=== PATIENT | male | born 1975 | race Hispanic/Latino ===

== ENCOUNTER 2016-12-03 02:54 | Emergency (ER) | payer SELFPAY ==
[2016-12-03] MEDS ORDERED: Ketorolac Tromethamine 30 MG/ML VIAL ONE (03:17)
[2016-12-03] MEDS ORDERED: Fluorescein Opthalmic Strip ONE (04:09)
== END 2016-12-03 04:20 | disposition home or self-care (01) ==
LOC: ERS 02:54
DX: H57.12 Ocular pain, left eye (principal); R51 Headache; F17.210 Nicotine dependence, cigarettes, uncomplicated
CPT/HCPCS: 96372; J1885

== ENCOUNTER 2017-02-16 16:08 | Emergency (ER) | payer SELFPAY ==
[2017-02-16] MEDS ORDERED: Ketorolac Tromethamine 30 MG/ML VIAL ONE (16:50)
[2017-02-16] MEDS ORDERED: Acetaminophen 500 MG TAB ONE (17:25)
[2017-02-16 17:31] LABS: #Basophils 0.1 thou/uL (0.0-0.2); #Eosinphils 0.1 thou/uL (0.0-0.7); #Lymphocytes 2.2 thou/uL (1.20-3.40); #Neutrophils 11.3 thou/uL (1.40-6.50); %Basophils 0.4 % (0.0-1.0); %Eosinophils 0.5 % (0.0-10.0); %Lymphocytes 14.9 % (21.0-51.0); %Monocytes 6.7 % (0.0-10.0); Hematocrit 46.3 % (42.0-52.0); Mean Platelet Volume 6.5 fL (7.4-10.4); Red Blood Cell (RBC) Count 4.94 mill/uL (4.70-6.10); White Blood Cell (WBC) Count 14.5 thou/uL (4.8-10.8)
[2017-02-16 17:53] LABS: ALT (SGPT) 20 U/L (8-55); AST (SGOT) 27 U/L (5-34); Alkaline Phosphatase 64 U/L (40-150); Anion Gap 10 mmol/L (10-20); BUN (Urea Nitrogen) 18 mg/dL (8.9-20.6); Bilirubin, Total 0.3 mg/dL (0.2-1.2); Calc. Creatinine Clearance 0 mL/min (70-130); Carbon Dioxide 24 mmol/L (22-29); Chloride 104 mmol/L (98-107); Estimated GFR-MDRD 61; Globulin 2.3 g/dL (2.4-3.5); Protein, Total 5.4 g/dL (6.0-8.3)
[2017-02-16] MEDS ORDERED: Ondansetron ODT 4 MG TAB ONE (17:53)
--- NOTE | 2017-02-16 19:25 | RAD ---
FRONTAL RADIOGRAPH CHEST 02/16/17 Supine and upright frontal imaging abdomen and pelvis. COMPARISON: None. HISTORY: Fever. FINDINGS: Frontal radiograph chest demonstrates no pneumothorax, pleural fluid, focal consolidation or alveolar edema. Herat and mediastinal contours are unremarkable. No evidence for free intraperitoneal air or small bowel obstruction. IMPRESSION: No acute findings. POS: [facility]
== END 2017-02-16 20:17 | disposition home or self-care (01) ==
LOC: ERS 16:08
DX: R50.9 Fever, unspecified (principal); F17.290 Nicotine dependence, other tobacco product, uncomplicated
CPT/HCPCS: 36415; 74022; 80053; 85025; 86308; 96360; 96372; J1885; Q0162

== ENCOUNTER 2017-02-18 16:05 | Emergency (ER) | payer SELFPAY | END 2017-02-18 16:34 | disposition home or self-care (01) | LOC: ERS 16:05 | DX: J06.9 Acute upper respiratory infection, unspecified (principal); F31.9 Bipolar disorder, unspecified; F20.9 Schizophrenia, unspecified; F17.210 Nicotine dependence, cigarettes, uncomplicated; F17.290 Nicotine dependence, other tobacco product, uncomplicated | CPT/HCPCS: 99406 ==

== ENCOUNTER 2017-02-18 21:03 | Emergency (ER) | payer SELFPAY ==
[2017-02-18 22:43] LABS: #Basophils 0.1 thou/uL (0.0-0.2); #Eosinphils 0.2 thou/uL (0.0-0.7); #Lymphocytes 1.8 thou/uL (1.20-3.40); #Monocytes 0.9 thou/uL (0.11-0.59); #Neutrophils 8.5 thou/uL (1.40-6.50); %Basophils 0.6 % (0.0-1.0); %Eosinophils 2.1 % (0.0-10.0); %Lymphocytes 15.3 % (21.0-51.0); %Monocytes 7.9 % (0.0-10.0); Hematocrit 44.6 % (42.0-52.0); Mean Platelet Volume 6.1 fL (7.4-10.4); Red Blood Cell (RBC) Count 4.71 mill/uL (4.70-6.10); White Blood Cell (WBC) Count 11.5 thou/uL (4.8-10.8)
[2017-02-18 23:10] LABS: ALT (SGPT) 64 U/L (8-55); AST (SGOT) 63 U/L (5-34); Alkaline Phosphatase 79 U/L (40-150); Anion Gap 13 mmol/L (10-20); BUN (Urea Nitrogen) 16 mg/dL (8.9-20.6); Bilirubin, Total 0.4 mg/dL (0.2-1.2); Calc. Creatinine Clearance 0 mL/min (70-130); Calcium 8.8 mg/dL (7.8-10.44); Carbon Dioxide 28 mmol/L (22-29); Chloride 103 mmol/L (98-107); Estimated GFR-MDRD 70; Globulin 2.7 g/dL (2.4-3.5); Protein, Total 6.1 g/dL (6.0-8.3)
[2017-02-18 23:11] LABS: Acetaminophen Less than 6.0 mcg/mL (10.0-30.0); Salicylate Less than 8.0 mg/dL (15.0-30.0)
[2017-02-19] MEDS ORDERED: Acetaminophen 325 MG TAB ONE ×3 (01:07→23:16)
[2017-02-19 03:18] LABS: Bilirubin Small (Negative); Blood, Urine Negative (Negative); Glucose, Urine (Dipstick) Negative (Negative); Ketone, Urine 15 mg/dL (Negative); Nitrite Negative (Negative); Protein, Urine (Dipstick) Negative (Neg-Trace)
[2017-02-19 03:32] LABS: Amphetamine Not Detected (NotDetected); Methadone Not Detected (NotDetected); Methamphetamine Not Detected (NotDetected)
[2017-02-19] MEDS ORDERED: traZODone HCl 50 MG TAB ONE (23:16)
[2017-02-20] MEDS ORDERED: Ibuprofen 200 MG TAB ONE (10:04)
[2017-02-20] MEDS ORDERED: AMOXicillin 250 MG CAP ONE (19:03)
[2017-02-20] MEDS ORDERED: hydrOXYzine Pamoate 25 mg Capsule ONE (19:03)
[2017-02-20] MEDS ORDERED: Acetaminophen 325 MG TAB ONE (19:03)
[2017-02-20] MEDS ORDERED: traZODone HCl 50 MG TAB ONE (19:38)
[2017-02-21] MEDS ORDERED: AMOXicillin 250 MG CAP ONE (09:20)
[2017-02-21] MEDS ORDERED: hydrOXYzine Pamoate 25 mg Capsule ONE (11:53)
[2017-02-21] MEDS ORDERED: Acetaminophen 325 MG TAB ONE (11:53)
== END 2017-02-21 14:35 ==
LOC: ERS 21:03
DX: R45.851 Suicidal ideations (principal); R45.850 Homicidal ideations; F31.9 Bipolar disorder, unspecified; F20.9 Schizophrenia, unspecified; F17.210 Nicotine dependence, cigarettes, uncomplicated; Z71.6 Tobacco abuse counseling
CPT/HCPCS: 36415; 36416; 80053; 80306; 80307; 81003; 84443; 85025; 99406; Q0177

== ENCOUNTER 2017-03-14 19:31 | Emergency (ER) | payer SELFPAY | END 2017-03-14 21:45 | disposition home or self-care (01) | LOC: ERS 19:31 | DX: M25.562 Pain in left knee (principal); F31.9 Bipolar disorder, unspecified; F20.9 Schizophrenia, unspecified; F17.210 Nicotine dependence, cigarettes, uncomplicated | CPT/HCPCS: 99282 ==

== ENCOUNTER 2017-03-20 12:46 | Emergency (ER) | payer SELFPAY ==
[2017-03-20] MEDS ORDERED: Ketorolac Tromethamine 30 MG/ML VIAL ONE (16:29)
--- NOTE | 2017-03-20 16:33 | ULT ---
LEFT LOWER EXTREMITY VENOUS DOPPLER WITH SPECTRAL ANALYSIS AND COLOR FLOW EVALUATION 03/20/17 HISTORY: Left posterior calf pain since 03/13/17. The pain is sharp with angulation. FINDINGS: Mak scale, color flow, doppler evaluation with spectral analysis of the left lower extremity venous structures is performed with 2D imaging. The left lower extremity common femoral, superficial femoral , popliteal, posterior tibial, most proximal greater saphenous and profunda femoral veins are imaged. There is normal lumen compressibility, flow and augmentation in the visualized deep venous structures of the left lower extremity. IMPRESSION: No evidence of a DVT involving the visualized deep venous structures left lower extremity. POS: [facility]
== END 2017-03-20 16:41 | disposition home or self-care (01) ==
LOC: ERS 12:46
DX: M25.562 Pain in left knee (principal); F31.9 Bipolar disorder, unspecified; F20.9 Schizophrenia, unspecified; F17.210 Nicotine dependence, cigarettes, uncomplicated; Z79.899 Other long term (current) drug therapy
CPT/HCPCS: 96372; J1885

== ENCOUNTER 2017-06-27 10:46 | Emergency (ER) | payer SELFPAY ==
[2017-06-27] MEDS ORDERED: Ketorolac Tromethamine 60 MG/2 ML VIAL ONE (13:21)
--- NOTE | 2017-06-27 13:46 | RAD ---
THREE VIEWS RIGHT ANKLE: Date: 06-27-17 Comparison: None. History: Prior ankle fracture, injury, trauma, pain. FINDINGS: There is a corticated osseous density at the tip of the lateral malleolus, evidence of prior fracture . There is prominent lateral soft tissue swelling overlying the lateral malleolus. There is no acute fracture or evidence of dislocation. The talar dome appears intact. Base of the fifth metatarsal appe ars grossly unremarkable. IMPRESSION: Evidence of old lateral fracture. Lateral soft tissue swelling is present with no evidence for an acu te fracture or dislocation. POS: [facility]
== END 2017-06-27 13:46 | disposition home or self-care (01) ==
LOC: ERS 10:46
DX: S93.401A Sprain of unspecified ligament of right ankle, initial encounter (principal); F31.9 Bipolar disorder, unspecified; F20.9 Schizophrenia, unspecified; F17.210 Nicotine dependence, cigarettes, uncomplicated; Z79.899 Other long term (current) drug therapy; X50.1XXA Overexertion from prolonged static or awkward postures, initial encounter
CPT/HCPCS: J1885

== ENCOUNTER 2017-09-03 08:54 | Emergency (ER) | payer SELFPAY ==
--- NOTE | 2017-09-03 09:41 | RAD ---
THREE VIEWS RIGHT ANKLE: Date: 09-03-17 Comparison: 06-27-17 History: Right ankle pain. FINDINGS: There is a corticated osseous fragment at the tip of the lateral malleolus, unchanged when compared t o the 06-27-17 examination. This suggests an old fracture. There is mild anterior and lateral soft tis joy swelling. The talar dome and ankle mortise appear intact. IMPRESSION: Findings suggest a stable old fracture at the tip of the lateral malleolus. Persistent soft tissue sw elling is seen. If there is concern for internal derangement given persistent pain, MRI suggested. POS: [facility]
== END 2017-09-03 10:02 | disposition home or self-care (01) ==
LOC: ERS 08:54
DX: S82.61XG Displaced fracture of lateral malleolus of right fibula, subsequent encounter for closed fracture with delayed healing (principal); F31.9 Bipolar disorder, unspecified; F20.9 Schizophrenia, unspecified; Z86.61 Personal history of infections of the central nervous system; F17.210 Nicotine dependence, cigarettes, uncomplicated; X58.XXXD Exposure to other specified factors, subsequent encounter

== ENCOUNTER 2018-02-18 06:48 | Emergency (ER) | payer SELFPAY | END 2018-02-18 07:17 | disposition home or self-care (01) | LOC: ERS 06:48 | DX: F41.9 Anxiety disorder, unspecified (principal); F31.9 Bipolar disorder, unspecified; F20.9 Schizophrenia, unspecified; F17.210 Nicotine dependence, cigarettes, uncomplicated | CPT/HCPCS: 99281 ==

== ENCOUNTER 2018-03-07 20:41 | Emergency (ER) | payer SELFPAY ==
[2018-03-07 21:32] LABS: #Eosinphils 0.1 thou/uL (0.0-0.7); #Lymphocytes 1.4 thou/uL (1.20-3.40); #Monocytes 0.7 thou/uL (0.11-0.59); #Neutrophils 7.6 thou/uL (1.40-6.50); %Basophils 0.5 % (0.0-1.0); %Eosinophils 0.8 % (0.0-10.0); %Neutrophils 77.8 % (42.0-75.0); Hemoglobin 16.2 g/dL (14.0-18.0); Mean Corpuscular Hemoglobin 31.1 pg (27.0-31.0); Mean Corpuscular Volume 91.4 fL (78.0-98.0); Mean Platelet Volume 6.9 fL (7.4-10.4); Platelet Count 222 thou/uL (130-400); Red Blood Cell (RBC) Count 5.21 mill/uL (4.70-6.10); White Blood Cell (WBC) Count 9.8 thou/uL (4.8-10.8)
[2018-03-07 21:54] LABS: ALT (SGPT) 24 U/L (8-55); AST (SGOT) 21 U/L (5-34); Albumin 4.1 g/dL (3.5-5.0); Alkaline Phosphatase 79 U/L (40-150); Anion Gap 11 mmol/L (10-20); BUN (Urea Nitrogen) 15 mg/dL (8.9-20.6); Bilirubin, Total 0.8 mg/dL (0.2-1.2); Calc. Creatinine Clearance 0 mL/min (70-130); Calcium 9.5 mg/dL (7.8-10.44); Carbon Dioxide 29 mmol/L (22-29); Chloride 102 mmol/L (98-107); Estimated GFR-MDRD 69; Globulin 3.1 g/dL (2.4-3.5); Glucose 98 mg/dL (70-105); Potassium 3.8 mmol/L (3.5-5.1); Protein, Total 7.2 g/dL (6.0-8.3); Sodium 138 mmol/L (136-145)
[2018-03-07] MEDS ORDERED: Acetaminophen 500 MG TAB ONE (22:12)
[2018-03-07] MEDS ORDERED: cefTRIAXone\\ROCEPHIN 1 GM VIAL ONE ×2 (22:12→22:18)
[2018-03-07] MEDS ORDERED: Lidocaine 1% PF 5 ML VIAL ONE (22:12)
== END 2018-03-07 22:10 | disposition home or self-care (01) ==
LOC: ERS 20:41
DX: L03.116 Cellulitis of left lower limb (principal); F31.9 Bipolar disorder, unspecified; F20.9 Schizophrenia, unspecified; F17.210 Nicotine dependence, cigarettes, uncomplicated
CPT/HCPCS: 36415; 80053; 83605; 85025; 96372; J0696; J2001

== ENCOUNTER 2018-04-06 11:12 | Emergency (ER) | payer SELFPAY ==
[2018-04-06] MEDS ORDERED: Acetaminophen 500 MG TAB ONE (11:59)
[2018-04-06 12:10] LABS: #Basophils 0.1 thou/uL (0.0-0.2); #Eosinphils 0.1 thou/uL (0.0-0.7); #Lymphocytes 2.3 thou/uL (1.20-3.40); #Monocytes 0.8 thou/uL (0.11-0.59); #Neutrophils 3.5 thou/uL (1.40-6.50); %Basophils 1.5 % (0.0-1.0); %Eosinophils 1.1 % (0.0-10.0); %Lymphocytes 33.6 % (21.0-51.0); %Monocytes 11.3 % (0.0-10.0); %Neutrophils 52.5 % (42.0-75.0); Hemoglobin 17.2 g/dL (14.0-18.0); Mean Corpuscular HGB CONC 32.6 g/dL (32.0-36.0); Mean Corpuscular Hemoglobin 30.6 pg (27.0-31.0); Mean Corpuscular Volume 93.9 fL (78.0-98.0); Mean Platelet Volume 6.6 fL (7.4-10.4); Platelet Count 235 thou/uL (130-400); RBC Distribution Width 12.2 % (11.5-14.5); Red Blood Cell (RBC) Count 5.62 mill/uL (4.70-6.10); White Blood Cell (WBC) Count 6.7 thou/uL (4.8-10.8)
[2018-04-06 12:32] LABS: ALT (SGPT) 22 U/L (8-55); AST (SGOT) 17 U/L (5-34); Albumin 4.4 g/dL (3.5-5.0); Alkaline Phosphatase 73 U/L (40-150); Anion Gap 11 mmol/L (10-20); BUN (Urea Nitrogen) 13 mg/dL (8.9-20.6); Bilirubin, Total 0.7 mg/dL (0.2-1.2); Calc. Creatinine Clearance 0 mL/min (70-130); Carbon Dioxide 29 mmol/L (22-29); Chloride 104 mmol/L (98-107); Estimated GFR-MDRD 58; Glucose 61 mg/dL (70-105); Lipase 31 U/L (8-78); Potassium 3.9 mmol/L (3.5-5.1); Protein, Total 7.4 g/dL (6.0-8.3); Sodium 140 mmol/L (136-145)
[2018-04-06] MEDS ORDERED: Azithromycin 250 MG TAB ONE (13:03)
[2018-04-06] MEDS ORDERED: cefTRIAXone\\ROCEPHIN 250 MG VIAL ONE (13:04)
[2018-04-06] MEDS ORDERED: Lidocaine 2% MPF 10 ML AMP (For Epidural Use) ONE (13:04)
[2018-04-06] MEDS ORDERED: Lidocaine 1% PF 5 ML VIAL ONE (13:05)
== END 2018-04-06 12:55 | disposition home or self-care (01) ==
LOC: ERS 11:12
DX: N45.1 Epididymitis (principal); F17.210 Nicotine dependence, cigarettes, uncomplicated; F20.9 Schizophrenia, unspecified; F31.9 Bipolar disorder, unspecified
CPT/HCPCS: 36415; 80053; 83690; 85025; 96360; 96372; J0696; J2001

== ENCOUNTER 2018-04-08 12:27 | Emergency (ER) | payer SELFPAY ==
[2018-04-08] MEDS ORDERED: Acetaminophen 500 MG TAB ONE (12:45)
[2018-04-08 13:32] LABS: #Basophils 0.1 thou/uL (0.0-0.2); #Eosinphils 0.1 thou/uL (0.0-0.7); #Lymphocytes 2.8 thou/uL (1.20-3.40); #Monocytes 0.4 thou/uL (0.11-0.59); #Neutrophils 3.3 thou/uL (1.40-6.50); %Basophils 0.9 % (0.0-1.0); %Eosinophils 1.6 % (0.0-10.0); %Lymphocytes 41.7 % (21.0-51.0); %Monocytes 6.2 % (0.0-10.0); %Neutrophils 49.7 % (42.0-75.0); Hemoglobin 16.6 g/dL (14.0-18.0); Mean Corpuscular HGB CONC 33.2 g/dL (32.0-36.0); Mean Corpuscular Hemoglobin 30.7 pg (27.0-31.0); Mean Corpuscular Volume 92.4 fL (78.0-98.0); Mean Platelet Volume 6.7 fL (7.4-10.4); Platelet Count 219 thou/uL (130-400); White Blood Cell (WBC) Count 6.7 thou/uL (4.8-10.8)
[2018-04-08 13:51] LABS: ALT (SGPT) 18 U/L (8-55); AST (SGOT) 16 U/L (5-34); Albumin 4.4 g/dL (3.5-5.0); Alkaline Phosphatase 68 U/L (40-150); Anion Gap 16 mmol/L (10-20); BUN (Urea Nitrogen) 20 mg/dL (8.9-20.6); Bilirubin, Total 0.7 mg/dL (0.2-1.2); Calc. Creatinine Clearance 0 mL/min (70-130); Calcium 9.8 mg/dL (7.8-10.44); Carbon Dioxide 21 mmol/L (22-29); Chloride 105 mmol/L (98-107); Estimated GFR-MDRD 62; Globulin 2.8 g/dL (2.4-3.5); Glucose 101 mg/dL (70-105); Potassium 3.6 mmol/L (3.5-5.1); Protein, Total 7.2 g/dL (6.0-8.3); Sodium 138 mmol/L (136-145)
== END 2018-04-08 14:38 | disposition home or self-care (01) ==
LOC: ERS 12:27
DX: M62.838 Other muscle spasm (principal); F31.9 Bipolar disorder, unspecified; F20.9 Schizophrenia, unspecified; F17.210 Nicotine dependence, cigarettes, uncomplicated
CPT/HCPCS: 36415; 80053; 84484; 85025; 93005; 94760

== ENCOUNTER 2018-04-29 00:07 | Emergency (ER) | payer SELFPAY ==
--- NOTE | 2018-04-29 08:10 | RAD ---
4 VIEWS LEFT KNEE: Date: 04/29/18 COMPARISON: None. HISTORY: Left knee pain. FINDINGS: Four views of the left knee show no evidence of acute fracture or dislocation. No knee effusion is se en. No degenerative changes are present. IMPRESSION: Unremarkable exam. POS: [facility]
== END 2018-04-29 02:16 | disposition home or self-care (01) ==
LOC: ERS 00:07
DX: M25.562 Pain in left knee (principal); F31.9 Bipolar disorder, unspecified; F20.9 Schizophrenia, unspecified; F17.210 Nicotine dependence, cigarettes, uncomplicated

== ENCOUNTER 2018-06-30 17:16 | Emergency (ER) | payer SELFPAY ==
[2018-06-30 17:38] LABS: #Basophils 0.1 thou/uL (0.0-0.2); #Lymphocytes 2.2 thou/uL (1.20-3.40); #Monocytes 0.4 thou/uL (0.11-0.59); #Neutrophils 4.2 thou/uL (1.40-6.50); %Basophils 1.1 % (0.0-1.0); %Eosinophils 0.6 % (0.0-10.0); %Monocytes 6.1 % (0.0-10.0); %Neutrophils 60.3 % (42.0-75.0); Hemoglobin 16.6 g/dL (14.0-18.0); Mean Corpuscular HGB CONC 32.9 g/dL (32.0-36.0); Mean Corpuscular Hemoglobin 30.6 pg (27.0-31.0); Mean Corpuscular Volume 92.9 fL (78.0-98.0); Mean Platelet Volume 6.5 fL (7.4-10.4); Platelet Count 282 thou/uL (130-400); RBC Distribution Width 12.3 % (11.5-14.5); Red Blood Cell (RBC) Count 5.43 mill/uL (4.70-6.10)
--- NOTE | 2018-06-30 17:47 | RAD ---
AP VIEW CHEST: 06/30/18 HISTORY: Weakness, lightheadedness. AP view chest is obtained on 06/30/18. Comparison made to previous exam from 01/24/16. AP view chest demonstrates the lungs to be well aerated. No evidence of active intrathoracic disease seen. No evidence of effusions, pneumonia or pneumothorax seen. IMPRESSION: Unremarkable AP view chest. POS: [facility]
[2018-06-30 17:56] LABS: ALT (SGPT) 32 U/L (8-55); AST (SGOT) 23 U/L (5-34); Albumin 4.4 g/dL (3.5-5.0); Alkaline Phosphatase 83 U/L (40-150); Anion Gap 11 mmol/L (10-20); BUN (Urea Nitrogen) 24 mg/dL (8.9-20.6); CK (CPK) 32 U/L (30-200); Calc. Creatinine Clearance 0 mL/min (70-130); Calcium 9.8 mg/dL (7.8-10.44); Carbon Dioxide 30 mmol/L (22-29); Chloride 102 mmol/L (98-107); Estimated GFR-MDRD 55; Globulin 2.6 g/dL (2.4-3.5); Glucose 149 mg/dL (70-105); Lipase 37 U/L (8-78); Potassium 4.1 mmol/L (3.5-5.1); Sodium 139 mmol/L (136-145)
[2018-06-30 17:57] LABS: Acetaminophen Less than 6.0 mcg/mL (10.0-30.0); Alcohol Less than 10 mg/dL (Less than 10); Salicylate Less than 8.0 mg/dL (15.0-30.0)
== END 2018-06-30 19:05 | disposition home or self-care (01) ==
LOC: ERS 17:16
DX: F15.90 Other stimulant use, unspecified, uncomplicated (principal); F31.9 Bipolar disorder, unspecified; F20.9 Schizophrenia, unspecified; F17.210 Nicotine dependence, cigarettes, uncomplicated
CPT/HCPCS: 71045; 80053; 80307; 82550; 83605; 83690; 84484; 85025; 93005; 94760; 96360